=== PATIENT | male | born 1980 | race African-American/Black ===

== ENCOUNTER 2024-08-19 18:39 | Emergency (ER) | payer BC, SELFPAY ==
--- NOTE | ~2024-08-19 | XR_ITS ---
EXAMINATION: XR FINGER, RIGHT CLINICAL INFORMATION: Right 3rd/4th laceration COMPARISON: None available. TECHNIQUE: 3 views of the middle finger including AP view of the hand FINDINGS: The bones and soft tissues are normal. No fracture. Alignment is anatomic. Joint spaces are maintained. XR/XR finger RT min 2V IMPRESSION: Normal finger radiographs. Electronically signed by: Claude Mcmullen MD 08/19/2024 08:37 PM EDT RP
[2024-08-19 19:02] VITALS: BP 124/76; PULSE 72; RESP 16; TEMP 36.4; O2SAT 98; BMI 25.8
--- NOTE | 2024-08-19 19:10 | ED_ITS ---
HPI - Wound/Laceration General Chief Complaint: Wound/Laceration Stated Complaint: Cut to R middle finger Time Seen by Provider: 08/19/24 23:08 Source: patient Mode of arrival: ambulatory Limitations: no limitations History of Present Illness ED Provider: Dr. العراقي HPI narrative: While at work patient put his hand down on the car seat and there was a razor. He cut his right 3rd and 4th digit palmar surface. Not up to date with his tetanous Onset (ago): hour(s) Related Data Allergies Allergy/AdvReac Type Severity Reaction Status Date / Time No Known Allergies Allergy Verified 08/19/24 19:05 Review of Systems Review of Systems: Yes all other systems are reviewed and are negative Neurologic: Denies Sensory deficit (Neuro) [facility] Social History Social History Advance Directives: No Advance Directives Information Provided: No Do you have a plan to hurt others: No Plan Physical Exam Vital Signs: Vital Signs: Last Vital Signs Temp 97.5 F 08/19/24 22:48 Pulse 77 08/19/24 22:48 Resp 16 08/19/24 22:48 BP 126/76 08/19/24 22:48 Pulse Ox 98 08/19/24 22:48 O2 Del Method Room Air 08/19/24 22:48 BMI result Body Mass Index 25.8 Const: General: healthy appearing Nutritional Appearance: average body habitus Orientation/consciousness: oriented to person and patient oriented x3 Limitations: no limitations HEENT: Head: Yes normal to inspection Ears: external ears normal General nose exam: Normal external nose present Mouth: Normal oral and palatal mucosa present and oropharynx normal Throat: Yes posterior oropharynx normal Eyes: General: appearance normal, both eyes and all related structures Neck: Other: supple Neck: Yes normal visual inspection Chest: Chest palpation & inspection: normal inspection of the chest Resp: Auscultation: clear to auscultation bilaterally Cardio: Jugular venous distension: no JVD Rate: regular rate Rhythm: regular rhythm Heart sounds: S1 normal heart sound present and S2 normal heart sound present GI: Inspection: Yes normal to inspection Palpation (GI): Soft to palpation, nontender and No hepatosplenomegaly present Auscultation: normal bowel sounds : General: Yes no CVA tenderness Back/Spine/Pelvis: Back: no CVA tenderness Skin: Other: 3rd and fourth digits with laceration to lateral aspect of each. 3rd digit with 4cm laceration, 4th digit with 2cm laceration. Neuro: General: oriented to person and patient oriented x3 Cranial nerves: Yes CN's II-XII intact bilaterally Motor exam (neuro): 5/5 motor strength present throughout Sensory Exam: No Sensory deficit (Neuro) Extrem: Other: FROM of both fingers, sensory intact Psych: Appearance: grossly normal Course Course Course Narrative: This is a Rapid Medical Examination (RME) performed by Veronica Ruiz PA-C in triage. Full HPI, ROS, assessment and treatment plan per primary provider in the Main ED. 44 yo male her e for eval of accidental laceration to right 3rd and 4th digit sustained at work while using a razor blade 1 hr [employer]. not on AC. unsure of tetanus status. + 2cm lac to palmar aspect of right 3rd digit. bleeding controlled. second 2cm vertical lac noted to right 4th digit. bleeding controlled in triage. dressing applied. Plan: xr, lac repair +/- tdap Reevaluation(s) Reevaluation #1: Procedure: both fingers had skin adhesive applied, patient given tetanous will dc home Time: 23:35 Medical Decision Making Differential Diagnosis Differential Diagnoses: The differential diagnosis associated with the presentation includes (finger laceration, tendon injury) Independent Interpretation I performed an independent interpretation of an: Plain X-Ray (3rd and 4th digit no fractures) Prescription Management I considered prescription management with: Antibiotic (wounds clean did not give abx) Discharge Plan Discharge Clinical Impression: Laceration Patient Disposition: Home, Self-Care Instructions: Skin Adhesive Care (ED) Stand Alone Forms: Work/School Release Print Language: Vietnamese
[2024-08-19 22:48] VITALS: BP 126/76; PULSE 77; RESP 16; TEMP 36.4; O2SAT 98
--- NOTE | 2024-08-19 23:33 | PC.NURSE ---
Dr. العراقي at bedside applying Exofin surgiglue to finger lacerations. Superficial. Cleansed with water, peroxide, & betadine by provider. Pt tolerates procedure well.
[2024-08-19] MEDS: Diphth,Pertus(ACell),Tet Adult 0.5 ML SYRINGE IM (23:56)
[2024-08-20 00:02] VITALS: BP 126/76; PULSE 77; RESP 16; TEMP 36.4; O2SAT 98
== END 2024-08-20 00:02 | disposition home or self-care (01) ==
PROVIDERS: Emergency Provider Emergency Medicine
DX: S61.212A Laceration without foreign body of right middle finger without damage to nail, initial encounter (principal); S61.210A Laceration without foreign body of right index finger without damage to nail, initial encounter; M79.641 Pain in right hand; W26.8XXA Contact with other sharp object(s), not elsewhere classified, initial encounter; Y93.89 Activity, other specified; Y92.810 Car as the place of occurrence of the external cause; Y99.8 Other external cause status; Z23 Encounter for immunization
CPT/HCPCS: 12002; 73140; 90471; 90715; 99283; 99284

== ENCOUNTER 2024-08-24 09:43 | Outpatient (AMB) | payer OTHER, BC, SELFPAY ==
[2024-08-24 10:02] VITALS: BP 126/84; PULSE 81; TEMP 36.7; O2SAT 98; BMI 26.3
--- NOTE | 2024-08-24 10:02 | MHC.OFFWIV ---
Intake Vital Signs 08/24/24 10:02 Height 5 ft 9 in Weight 178 lb BMI 26.3 BP 126/84 Blood Pressure Location Lt brachial Position Sitting Pulse 81 Pulse Source Pulse Oximeter Temp 98.1 F Temp Source Oral Pulse Oximetry (%) 98 Oxygen Delivery Method Room Air Intake Visit Reasons: EP clearance to go back to work/WC Hand injury Intake Note: pt requesting clearance to return to work. RT hand 3rd and 4th finger lacerations. Sealed w/ Dermabond at [facility]. Patient Tobacco Use Status: Never used Tobacco Allergies No Known Allergies Allergy (Verified 08/24/24 10:08) Do you need a note to return to daycare/school/sports/work: Yes HPI HPI Comments History of Present Illness Details Patient is a 44-year-old male who is here requesting a clearance for work note. 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 He went to the [facility] emergency department where they use Dermabond to repair it. He states the Dermabond fell off of the 4th digit but is still on the 3rd digit. 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 He denies any pain of the fingers. [facility] Social History Patient Tobacco Use Status: Never used Tobacco Review of Systems Const All systems reviewed & are unremarkable except as noted in HPI and below Physical Exam Vital Signs: Last Vital Signs Temp 98.1 F 08/24/24 10:02 Pulse 81 08/24/24 10:02 BP 126/84 08/24/24 10:02 Pulse Ox 98 08/24/24 10:02 Oxygen Delivery Method Room Air 08/24/24 10:02 BMI result Body Mass Index 26.3 Const General: cooperative, healthy appearing, comfortable, no acute distress and well developed Orientation/consciousness: patient oriented x3 Limitations: no limitations HEENT Head: Yes normal to inspection Ears: hearing grossly normal bilaterally General nose exam: Normal external nose present Face and sinus: Yes normal facial exam Eyes General: appearance normal, both eyes and all related structures Neck Neck: Yes normal visual inspection and Yes full ROM Resp Effort & Inspection: normal respiratory effort and able to speak in complete sentences Skin General skin exam: no rashes or lesions noted Neuro General: patient oriented x3 Extrem General: Yes normal to inspection Right upper extremity: Extremity exam: right hand (4th digit well healing lac; 3rd digit Dermabond in place;no signs infection) Details: neuromotor exam normal, neurosensory exam normal, tendon exam normal, vascular exam Details: normal capillary refill and no swelling; no tenderness, no unusual warmth, no abrasions and no ecchymosis Assessment & Plan Assessment & Plan (1) Finger laceration: Code(s): S61.219A - Laceration without foreign body of unspecified finger without damage to nail, initial encounter Qualifiers: Encounter type: initial encounter Finger: middle finger Damage to nail status: without damage Foreign body presence: without foreign body Laterality: right Qualified Code(s): S61.212A - Laceration without foreign body of right middle finger without damage to nail, initial encounter Plan: Wounds appear to be healing well, wrote note for patient to return to work on August 29 with no restrictions, as patient requested. Plan See above Coding Level of Care Code New Pt Level 3 (14536) Diagnoses Laceration of right middle finger without foreign body without damage to nail, initial encounter S61.212A Encounter type: initial encounter Finger: middle finger Damage to nail status: without damage Foreign body presence: without foreign body Laterality: right
== END 2024-08-24 13:12 | disposition home or self-care (01) ==
PROVIDERS: Visit Provider Physician Assistant
DX: S61.212A Laceration without foreign body of right middle finger without damage to nail, initial encounter (principal); Z04.2 Encounter for examination and observation following work accident

== ENCOUNTER → 2024-08-24 09:43 | Outpatient (BNVA) | payer OTHER, BC, SELFPAY | DX: S61.212D Laceration without foreign body of right middle finger without damage to nail, subsequent encounter (principal) | CPT/HCPCS: 99202 ==